=== PATIENT | female | born 1980 | race Caucasian/White ===

== ENCOUNTER 2021-08-21 19:13 | Emergency (ER) | payer BC, SELFPAY ==
[2021-08-21 19:30] VITALS: BP 106/85; PULSE 80; RESP 16; TEMP 36.7; O2SAT 99
--- NOTE | 2021-08-21 19:31 | ED.EYEPROB ---
HPI - Eye Problem General Chief complaint: Eye Problems Stated complaint: left eye pain Time Seen by Provider: 08/21/21 19:31 Source: patient Mode of arrival: ambulatory Limitations: no limitations History of Present Illness HPI Narrative: 41 yo F presents with concern for pink eye to L eye. 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 She now thinks she got it from him. She states L eye feels sticky. No other symptoms. All systems reviewed and negative except as noted above. Related Data Allergies Allergy/AdvReac Type Severity Reaction Status Date / Time No Known Allergies Allergy Verified 08/21/21 19:19 Review of Systems Review of Systems: CONSTITUTIONAL: Denies fever, chills, or sweats. EYES: Denies visual changes, redness, or discharge. Reports sticky sensation to left eye. Bacterial conjunctivitis exposure. ENT: Denies rhinorrhea, congestion, sore throat, or otalgia. CARDIOVASCULAR: Denies chest pain, palpitations, or edema. RESPIRATORY: Denies cough or dyspnea. GASTROINTESTINAL: Denies abdominal pain, nausea, vomiting, or diarrhea. GENITOURINARY: Denies dysuria or hematuria. SKIN: Denies rash or itching. MUSCULOSKELETAL: Denies back pain, joint pain, or myalgia. NEUROLOGIC: Denies headache, numbness, or weakness. PSYCHIATRIC: Denies anxiety or depression. All other systems reviewed are negative, except as documented in HPI. PMFSH Comments At time of signature, agree with nursing past medical, surgical, social and family history. There is no relevant family history pertinent to the presenting complaint. Exam Narrative: GENERAL: This is a well-nourished, well-developed patient, in no apparent distress. HEAD: normocephalic, atraumatic. EYES: PERRL. Sclera clear/white. Vision is grossly intact. EARS: External ears normal, auditory canals clear and without drainage, TMs normal without perforation. Hearing grossly intact. NOSE: External nose normal with no obvious nasal discharge, nares without redness, no rhinorrhea. THROAT: Mucous membranes moist, posterior pharynx clear. NECK: Neck supple, non-tender without lymphadenopathy, masses or thyromegaly. CARDIOVASCULAR: Regular rate and rhythm without murmurs, gallops, or rubs. RESPIRATORY: Clear to auscultation. Breath sounds equal bilaterally. No wheezes, rales, or rhonchi. GASTROINTESTINAL: Abdomen soft, non-tender, nondistended. Bowel sounds are active. No hepato-splenomegaly, or palpable masses. No guarding. SKIN: warm, Dry, intact with no suspicious lesions or rash, good texture and turgor. NEURO: awake, alert, and oriented to person, place and time. There were no obvious focal neurologic abnormalities. EXTREMITIES: No joint tenderness, effusion, or edema noted. No calf tenderness. Negative Homans sign bilaterally. BACK: Nontender without deformity. No CVA tenderness. Course Course Level of Care: Express Care Visit Vital Signs Vital signs: Vital Signs Temperature 36.7 C 08/21/21 19:30 Pulse Rate 80 08/21/21 19:30 Respiratory Rate 16 08/21/21 19:30 Blood Pressure 106/85 08/21/21 19:30 Pulse Oximetry 99 08/21/21 19:30 Temperature 36.7 C 08/21/21 19:38 Pulse Rate 80 08/21/21 19:38 Respiratory Rate 16 08/21/21 19:38 Blood Pressure 106/85 08/21/21 19:38 Pulse Oximetry 99 08/21/21 19:38 Reviewed MDM - Eye Problem MDM Narrative Medical decision making narrative: No abnormalities noted to bilateral eyes. Will prescribe antibiotic for patient due to bacterial conjunctivitis exposure. Recommend that she not start antibiotic until she sees symptoms. Patient is aware of diagnosis, understands and agrees to treatment plan. Anticipatory guidance given. Patient agrees to follow-up as directed and is aware of reasons to seek care at the emergency department. Portions of this record may have been created with voice recognition software Differential Diagnosis Differential diagnosis: Likely corneal abrasion, conjun
[2021-08-21 19:38] VITALS: BP 106/85; PULSE 80; RESP 16; TEMP 36.7; O2SAT 99
== END 2021-08-21 19:40 | disposition home or self-care (01) ==
PROVIDERS: Emergency Provider Nurse Practitioner Family
DX: H10.32 Unspecified acute conjunctivitis, left eye (principal)
CPT/HCPCS: 99203; G0463

== ENCOUNTER → 2023-05-10 10:14 | Outpatient (CLI) | payer OTHER, SELFPAY ==
--- NOTE | ~2023-05-10 | US_ITS ---
EXAMINATION: US transvaginal DATE: 05/10/2023 10:45 INDICATION: AMENORRHEA TECHNIQUE: Multiple transabdominal and endovaginal sonographic images of the pelvis were obtained. COMPARISON: None. FINDINGS: Uterus: 7.7 x 5.2 x 5.8 cm. Endometrial complex measures 16 mm, heterogeneous echotexture, no definit e endometrial mass. Right Ovary: 1.7 x 1.6 x 2.0 cm. Vascular flow is present. Left Ovary: 2.9 x 2.3 x 2.3 cm. Vascular flow is present. 2.3 cm simple ovarian cyst. There is no free fluid in the pelvis. IMPRESSION: 16 mm, heterogeneous endometrium. Consider endometrial sampling given history of amenorrhea. 2.3 cm simple left ovarian cyst. Reviewed, dictated and finalized at [facility]. TENSION TESTER IMPRESSION: 16 mm, heterogeneous endometrium. Consider endometrial sampling given history o f amenorrhea. 2.3 cm simple left ovarian cyst.
== END ==
PROVIDERS: PCP Nurse Practitioner; Visit Provider Nurse Practitioner
DX: N91.2 Amenorrhea, unspecified (principal); N83.202 Unspecified ovarian cyst, left side
CPT/HCPCS: 76830

== ENCOUNTER → 2023-08-13 15:50 | Outpatient (CLI) | payer OTHER, SELFPAY ==
--- NOTE | ~2023-08-13 | MM_ITS ---
EXAMINATION: MM screening [facility] HISTORY: Screening TECHNIQUE: Craniocaudal and mediolateral oblique 3-D tomosynthesis images were obtained and synthetic 2-D images were generated. CAD analysis was submitted and interpreted. COMPARISON: No prior mammogram is available for comparison at this institution. BREAST PARENCHYMAL COMPOSITION: Not dense: There are scattered areas of fibroglandular density. FINDINGS: There are multiple bilateral breast masses which are partially obscured by fibroglandular t issue. There are no suspicious calcifications or architectural distortion. IMPRESSION: 1. Bilateral breast masses. 2. Recommend comparison to previous outside mammograms to assess stability. BI-RADS Category 0: Incomplete: Needs additional imaging evaluation. Reviewed, dictated and finalized at location [facility]. R MARINE
== END ==
PROVIDERS: PCP Nurse Practitioner; Visit Provider Nurse Practitioner
DX: Z12.31 Encounter for screening mammogram for malignant neoplasm of breast (principal); R92.8 Other abnormal and inconclusive findings on diagnostic imaging of breast
CPT/HCPCS: 77063; 77067

== ENCOUNTER 2024-02-01 16:30 | Emergency (ER) | payer BC, SELFPAY ==
--- NOTE | ~2024-02-01 | CT_ITS ---
EXAMINATION: CT abdomen pelvis w con DATE: 02/01/2024 19:26 INDICATION: Epigastric abdominal pain, nausea. History of peptic ulcer disease TECHNIQUE: Computed tomography (CT) of the abdomen and pelvis was performed with 100 CC Omnipaque 350 intravenous contrast. Automated exposure control and iterative reconstruction technique were employe d. Exam dose: 724.77 mGy-cm total exam DLP. COMPARISON: None. FINDINGS: The lung bases are clear. Normal heart size. No pericardial or pleural effusion. The liver, spleen, pancreas, bile ducts and pancreatic duct, and adrenal glands and kidneys are unrem arkable. There is prominent pericholecystic fluid and/or gallbladder wall edema and enhancement of the gallbla dder mucosa, suggesting acute cholecystitis. Clinical correlation is recommended. Normal caliber of the abdominal aorta. No intraperitoneal or retroperitoneal or pelvic mass lesion or adenopathy or ascites. Retroflexed uterus. The urinary bladder is unremarkable. Normal appendix. No bowel obstruction or intraperitoneal free air. Included skeletal structures are unremarkable. IMPRESSION: Gallbladder wall edema and/or pericholecystic fluid suggesting acute cholecystitis Reviewed, dictated and finalized at [facility]. Reviewed, dictated and finalized at location [facility]. IMPRESSION: Gallbladder wall edema and/or pericholecystic fluid suggesting acu te cholecystitis
[2024-02-01 16:31] VITALS: BP 146/71; PULSE 76; RESP 17; TEMP 36.4; O2SAT 97
--- NOTE | 2024-02-01 18:19 | ED.ABDPAIN ---
HPI - Abdominal Pain General Chief Complaint: Abdominal Pain Stated Complaint: abd pain Time Seen by Provider: 02/01/24 17:21 Source: patient Mode of arrival: ambulatory Limitations: no limitations History of Present Illness HPI narrative: This is a 44-year-old female that presents to the emergency department for epigastric abdominal pain. Reports known history of peptic ulcer disease. She takes Carafate for this. 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 Reports last night she ate a burger and had a funnel cake at the fair. She has had worsening epigastric pain since. Reports some nausea. Denies fevers, vomiting, diarrhea, or urinary symptoms. Related Data Allergies Allergy/AdvReac Type Severity Reaction Status Date / Time Sulfa (Sulfonamide Allergy Hives Verified 02/01/24 16:34 Antibiotics) Review of Systems Review of Systems: CONSTITUTIONAL: Denies fever GASTROINTESTINAL: Reports abdominal pain, nausea. Denies vomiting, or diarrhea. GENITOURINARY: Denies dysuria All systems reviewed & are unremarkable except as noted in HPI and below PMFSH Past Medical History Medical History (Updated 02/01/24 @ 20:46 by Magdalena Churchill PA-C) History of peptic ulcer disease Social History Social History (Updated 02/01/24 @ 18:21 by Magdalena Churchill PA-C) Smoking status: Never smoker Exam Narrative: GENERAL: Well-appearing, well-nourished, and in no acute distress. HEAD: Normocephalic, atraumatic. EYES: EOMI. CHEST: Clear to auscultation. No respiratory distress. No wheezes rales or rhonchi HEART: Regular rate and rhythm. No murmur heard. Normal peripheral pulses. ABDOMEN: Soft, nondistended, normal active bowel sounds. Mild tenderness to palpation in the epigastrium, without guarding EXTREMITIES: Normal range of motion. No edema. SKIN: Warm, dry, no rash. NEURO: No focal deficits. Alert and oriented x3. PSYCH: Normal mood and affect Course Course Emergency Course: patient updated on her workup and agrees with plan of care. Resting comfortably Consultations Consultation #1: Spoke with Dr. Velarde about patient and workup. patient will be instructed to remain on a low-fat diet. She may follow-up in clinic. No antibiotics recommended at this time Date: 02/01/24 Vital Signs Vital signs: Vital Signs Temperature 97.6 F 02/01/24 16:31 Pulse Rate 76 02/01/24 16:31 Respiratory Rate 17 02/01/24 16:31 Blood Pressure 146/71 H 02/01/24 16:31 Pulse Oximetry 97 02/01/24 16:31 Oxygen Delivery Room Air 02/01/24 16:31 Temperature 97.6 F 02/01/24 16:31 Pulse Rate 76 02/01/24 16:31 Respiratory Rate 17 02/01/24 16:31 Blood Pressure 146/71 H 02/01/24 16:31 Pulse Oximetry 97 02/01/24 16:31 Oxygen Delivery Room Air 02/01/24 16:31 MDM - Abdominal Pain MDM Narrative Medical decision making narrative: patient presents to the emergency department for epigastric abdominal pain. Ongoing after eating a fatty meal last night. She is afebrile and nontoxic appearing. Her vitals are stable. CBC with mild leukocytosis to 11.9. Metabolic panel and lipase without concerning findings. Urine without evidence of infection. test is negative. CT abdomen and pelvis shows findings of cholecystitis. Patient's pain well under control. Spoke with Dr. Velarde about patient and workup. patient will be instructed to remain on a low-fat diet. She may follow-up in clinic. No antibiotics recommended at this time. patient updated on her workup and agrees with plan of care. Resting comfortably. She was given warnings to return to the ER Differential Diagnosis Differential diagnosis: Likely pancreatitis and other ( biliary colic, peptic ulcer disease, GERD, gastritis) Lab Data Attestation: I reviewed the patient's lab results. 02/01/24 18:15 02/01/24 18:15 Labs: Lab Results 02/01/24 02/01/24 02/01/24 Range/Units 18:15 18:22 19:12
[2024-02-01 18:21] LABS: Basophils Absolute Auto 0.1 K/mm3 (0.0-0.1); Basophils Percent Auto 0.7 % (0.2-1.2); Eosinophils Absolute Auto 0.3 K/mm3 (0-0.3); Eosinophils Percent Auto 2.1 % (0-4.4); Hematocrit 41.8 % (37.0-47.0); Hemoglobin 13.7 g/dL (12.0-15.0); Immature Granulocyte Absolute 0.03 K/mm3 (0.00-0.031); Immature Granulocyte Percent A 0.3 % (0-0.5); Lymphocytes Absolute Auto 1.81 K/mm3 (0.9-3.2); Lymphocytes Percent Auto 15.2 % (18.3-44.2); Mean Corpuscular HGB Conc 32.8 g/dl (32-36); Mean Corpuscular Hemoglobin 27.5 pg (26-34); Mean Corpuscular Volume 83.8 fl (80-100); Monocytes Absolute Auto 0.8 K/mm3 (0.1-0.6); Monocytes Percent Auto 6.5 % (2.6-8.5); Neutrophils Percent Auto 75.2 % (45.5-73.1); Platelet Count Result 321 k/mm3 (150-375); Red Blood Count 4.99 M/mm3 (4.2-5.4); Red Cell Distribution Width 15.9 % (11.5-14.5); White Blood Count 11.9 K/mm3 (4.5-10.0)
[2024-02-01 18:31] LABS: Alanine Aminotransferase 13 U/L (6-35); Albumin Level 4.4 g/dL (3.5-5.1); Alkaline Phosphatase 31 U/L (38-126); Anion Gap 8 mmol/L (4-12); Aspartate Amino Transferase 28 U/L (14-36); Bilirubin,Total 0.5 mg/dL (0.2-1.3); Blood Urea Nitrogen 14 mg/dL (7-17); Calcium 9.2 mg/dL (8.4-10.2); Carbon Dioxide 28 mmol/L (22-30); Chloride 103 mmol/L (98-107); Estimated CRCL calculation 97 ml/min; Estimated Glomerular Filt Rate > 60; Glucose 99 mg/dL (65-110); Lipase 77 U/L (23-300); Potassium 3.9 mmol/L (3.4-5.0); Sodium 139 mmol/L (137-145)
[2024-02-01] MEDS: FAMOTIDINE 20 MG/2 ML VIAL IV PUSH (18:34)
[2024-02-01] MEDS: ONDANSETRON INJ 4 MG/2 ML VIAL IV PUSH (18:34)
[2024-02-01 18:37] LABS: Add Urine Microscopic? NO; Appearance Urine Clear (Clear); Bilirubin Urine Negative (Negative); Blood Urine Negative (Negative); Color Urine Yellow (Yellow); Glucose Urine UA Negative (Negative); Ketones Urine Negative (Negative); Leukocyte Esterase Ur Negative LEU/UL (Negative); Nitrate Urine Negative (Negative); Protein Urine Negative (Negative); Specific Grav Ur 1.023 (1.001-1.035)
[2024-02-01 19:13] LABS: BEDSIDEPREGUCG Negative
[2024-02-01 21:01] VITALS: BP 138/66; PULSE 79; RESP 17; TEMP 36.7; O2SAT 99
== END 2024-02-01 21:04 | disposition home or self-care (01) ==
PROVIDERS: Emergency Provider Physician Assistant
DX: K80.50 Calculus of bile duct without cholangitis or cholecystitis without obstruction (principal); Z87.11 Personal history of peptic ulcer disease
CPT/HCPCS: 36415; 74177; 80053; 81003; 81025; 83690; 85025; 96374; 96375; 99284; J2405; Q9967